=== PATIENT | female | born 1970 | race Caucasian/White ===

== ENCOUNTER 2019-01-20 20:14 | Inpatient (IN) | payer MEDICAID ==
[~2019-01-20] VITALS: Ht 160 cm; Wt 68.0 kg
[2019-01-20 20:20] VITALS: BP 116/63
--- NOTE | 2019-01-20 20:20 | NUR ---
PATIENT AMBULATED TO ER BED 11.
--- NOTE | 2019-01-20 20:42 | NUR ---
BIB REPORTING COUGH AND SINUS PRESSURE HIGUERA X 3 DAYS WITH CHEST WALL PAIN UPON COUGHING. LUNG SOUNDS DIMINISHED THROUGHOUT. NO LABORED BREATHING. MOIST COUGH.
[2019-01-20] MEDS ORDERED: KETOROLAC 30 MG/ML VIAL IM ONE (20:55)
[2019-01-20] MEDS ORDERED: predniSONE 20 MG TAB PO ONE (20:55)
[2019-01-20] MEDS ORDERED: ALBUTEROL SULFATE/IPRATROPIU 3 ML SOL IH ONE ×2 (20:55→21:20)
--- NOTE | 2019-01-20 21:02 | NUR ---
RT AT BEDSIDE.
--- NOTE | 2019-01-20 21:24 | NUR ---
XRAY AT BEDSIDE.
--- NOTE | 2019-01-20 21:37 | NUR ---
RT AT BEDSIDE. ADMINISTERING SECOND BREATHING TREATMENT
[2019-01-20] MEDS ORDERED: MAG SULF 2000 MG/WATER PREMIX 50 ML IV ONE (21:40)
[2019-01-20] MEDS ORDERED: NACL 0.9% 1,000 ML IV ONE (21:40)
[2019-01-21] MEDS ORDERED: NACL 0.9% 1,000 ML IV SCH (00:15)
[2019-01-21] MEDS ORDERED: ZOLPIDEM 5 MG TAB PO PRN (00:15)
[2019-01-21] MEDS ORDERED: LORazepam 2 MG/ML VIAL IM/IVP PRN (00:15)
[2019-01-21] MEDS ORDERED: ONDANSETRON 4 MG/2 ML VIAL IM/IVP PRN (00:15)
[2019-01-21] MEDS ORDERED: MORPHINE SULFATE 2 MG/ML SYR IVP PRN (00:15)
[2019-01-21] MEDS ORDERED: DOCUSATE SODIUM 100 MG GELCAP PO PRN (00:15)
[2019-01-21] MEDS ORDERED: ALBUTEROL SULFATE/IPRATROPIU 3 ML SOL IH PRN (00:15)
[2019-01-21 00:17] LABS: HEMATOCRIT 36.6 % (36-48); MEAN CORPUSCULAR HEMOGLOBIN 29 pg (27-31); MEAN CORPUSCULAR HGB CONC 33 g/dL (33-37); PLATELET COUNT (AUTO) 217 K/uL (140-450); RED BLOOD CELL COUNT(AUTO) 4.16 MIL/uL (4.20-5.40); WHITE BLOOD COUNT (AUTO) 8.5 K/uL (4.8-10.8)
[2019-01-21] MEDS ORDERED: predniSONE 20 MG TAB PO SCH (00:25)
[2019-01-21] MEDS ORDERED: PROMETH/CODEINE 6.25-10MG/5ML 5 ML UDC PO PRN (00:25)
--- NOTE | 2019-01-21 00:27 | NUR ---
RECEIVED FROM ER PER MARIIA AWAKE AND ALERT. NO PAIN COMPLAINTS DONE. ABLE TO VERBALIZE NEEDS WELL IN [place]OV[place]. ACCOMPANIED BY CONGOLESE SPEAKING SPOUSE. USED [employer] [facility]ING PLEATER #[id number]/RAFA . IVF SITE TO RAC#20. WITH GOOD BLOOD RETURN. CALL LIGHT WITH IN REACH AND CARE PLANS FOR THE NIGHT DISCUSSED WITH THEM. SKIN INTACT. NO EDEMA. DX. ACUTE ASTHMA. ROM X 4. ORIENTED X 4. ON 02 AT 2LPM/NC.
[2019-01-21] MEDS ORDERED: BENZOCAINE/MENTHOL 1 LOZ MM PRN (00:30)
--- NOTE | 2019-01-21 00:34 | NUR ---
PATIENT ADMITTED TO MEDSURG UNIT UNDER THE CARE OF DR. LANDAVERDE. REPORT GIVEN TO KIZZY FLORENCE. JESSICAEINT STABLE DURING WHEELCHARI TRANSFER.
[2019-01-21] MEDS: DEXT 5% / NACL 0.9% 500 ML IV SCH ×5 (00:35→22:51)
[2019-01-21 00:41] LABS: BASOPHILS % (MANUAL) 0 % (0-2); EOSINOPHILS % (MANUAL) 1 % (0-4); LYMPHOCYTES % (MANUAL) 4 % (20-46); MONOCYTES % (MANUAL) 1 % (5-12)
[2019-01-21 01:18] VITALS: BP 118/70
[2019-01-21] MEDS: ALBUTEROL SULFATE/IPRATROPIU 3 ML SOL IH SCH ×4 (01:22→20:27)
[2019-01-21 01:30] LABS: PROTHROMBIN TIME 9.2 secs (10.8-13.4)
[2019-01-21] MEDS: ACETAMINOPHEN 325 MG TAB PO PRN (01:31)
[2019-01-21] MEDS ORDERED: cefTRIAXone 1,000 MG VIAL ONE (01:35)
[2019-01-21 02:24] LABS: MAGNESIUM 2.7 mg/dL (1.8-2.4); PHOSPHORUS 2.7 mg/dL (2.5-4.9); THYROID STIMULATING HORMONE 2.2 uIU/mL (0.34-3.74)
--- NOTE | 2019-01-21 02:42 | NUR ---
PT. SLEEPING AT THIS TIME. SPOUSE LEFT FOR HOME AND PT. ORIENTED TO ROOM , RESTROOM AND CALL LIGHT USE. A/O X 4. ROM X 4. ORIENTED X 4.
[2019-01-21 03:11] LABS: CREATININE 0.9 mg/dL (0.6-1.3)
[2019-01-21 03:18] LABS: ALBUMIN 3.2 g/dL (3.4-5.0); TOTAL BILIRUBIN 0.2 mg/dL (0.0-1.0)
[2019-01-21] MEDS ORDERED: NACL 0.9% 1,000 ML IV ONE (03:40)
--- NOTE | 2019-01-21 04:37 | NUR ---
INFUSED NS 1 LITER WIDE OPEN ORDERED RT LACTIC ACID 3.6 . PT. SLEEPING BUT WAKES UP EASILY. A/O X 4. NO COMPLAINTS OF PAIN AT THIS TIME. CALL LIGHT WITH IN REACH.
--- NOTE | 2019-01-21 07:25 | NUR ---
RECEIVED BEDSIDE REPORT FROM CHANNELER INSOLE NURSE FOR CONTINUITY OF CARE. PATIENT IS AOX4, TO NAME, PLACE, DATE AND TIME. SPEAK FRISIAN. ABLE TO COMMUNICATE APPROPRIATELY AND MAKE NEEDS KNOWN. RESPIRATION EVEN AND UNLABORED. ON 2LPM VIA NC. NO SIGNS OF DISTRESS NOTED. IV ON RAC 20G, INTACT AND PATENT, INFUSING PER MD ORDER. SKIN INTACT AND CLEAN, APPROPRIATE TO ETHNICITY. ABLE TO AMBULATE WITH STEADY GAIT AND CONTINENT. DISCUSSED PLAN OF CARE WITH PATIENT AND PATIENT VERBALIZED UNDERSTANDING. BED IN LOW POSITION AND CALL LIGHT WITHIN REACH. INSTRUCTED PATIENT AND TO USE THE CALL LIGHT FOR ANY ASSISTANCE AND PATIENT WAS AWARE.
[2019-01-21 07:39] LABS: BASOPHILS % (AUTO) 0.2 % (0.0-2.0); HEMATOCRIT 34.5 % (36-48); HEMOGLOBIN 11.3 g/dL (12.0-16.0); LYMPHOCYTES # (AUTO) 0.6 K/uL (2.5-16.5); LYMPHOCYTES % (AUTO) 8.7 % (20.5-51.1); MEAN CORPUSCULAR HEMOGLOBIN 29 pg (27-31); MEAN CORPUSCULAR HGB CONC 33 g/dL (33-37); MEAN CORPUSCULAR VOLUME 88.8 fL (80-94); MONOCYTES # (AUTO) 0.1 K/uL (0.8-1.0); MONOCYTES % (AUTO) 1.3 % (1.7-9.3); NEUTROPHILS # (AUTO) 5.9 K/uL (1.8-7.7); NEUTROPHILS % (AUTO) 89.8 % (42.2-75.2); PLATELET COUNT (AUTO) 217 K/uL (140-450); RED BLOOD CELL COUNT(AUTO) 3.88 MIL/uL (4.20-5.40); RED CELL DISTRIBUTION WIDTH 14.1 % (11.6-13.7); WHITE BLOOD COUNT (AUTO) 6.6 K/uL (4.8-10.8)
[2019-01-21 07:49] LABS: ANION GAP 14.1 (8-16); CARBON DIOXIDE 25.7 mmol/L (21-32); CREATININE 0.8 mg/dL (0.6-1.3); POTASSIUM 4.8 mmol/L (3.5-5.1)
[2019-01-21 07:50] LABS: CHOL/HDL RATIO 2.4 (1-4.5)
[2019-01-21 08:00] VITALS: BP 113/64
--- NOTE | 2019-01-21 08:00 | NUR ---
RECEIVED A CRITICAL LAB FOR LACTIC ACID 2.7, NOTIFIED DR HARDIN AND DR HARDIN WAS AWARE. PROVIDED URINE SPECIMEN CUP TO PATIENT AND INSTRUCTED PATIENT TO VOID INTO THE CUP. PATIENT WAS AWARE. PATIENT WAS TALKING TO TAWNY AT BEDSIDE. NO SIGNS OF DISTRESS NOTED.
[2019-01-21] MEDS: LACTOBACILLUS RHAMNOSUS GG 1 EACH CAP PO SCH (08:28)
[2019-01-21] MEDS: MONTELUKAST SODIUM 10 MG TAB PO SCH (08:28)
[2019-01-21] MEDS: FAMOTIDINE 20 MG TAB PO SCH (08:29)
[2019-01-21] MEDS: LORATADINE 10 MG TAB PO SCH (08:29)
[2019-01-21] MEDS: HYDROcodone/APAP 5/325 MG 1 TAB TAB PO PRN (08:32)
--- NOTE | 2019-01-21 08:32 | NUR ---
PATIENT COMPLAINED OF BACK PAIN OF 5/10. MEDICATED WITH PRN PAIN MED. PATIENT TOLERATED WELL. KIMBERLEY IS AT BEDSIDE.
--- NOTE | 2019-01-21 08:41 | NUR ---
PATIENT HAS BEEN SCREENED AND CATEGORIZED MODERATE NUTRITION RISK. PATIENT WILL BE SEEN WITHIN 3-5 DAYS OF ADMISSION. 01/23/19-01/25/[address]
--- NOTE | 2019-01-21 09:30 | NUR ---
COLLECTED URINE AND DELIVERED TO LAB. PATIENT IS TALKING TO AT BEDSIDE. NO SIGNS OF DISTRESS NOTED. SAFETY MEASURES IN PLACE.
[2019-01-21] MEDS: methylPREDNISolone SS 125 MG/2 ML VIAL IVP SCH ×3 (09:32→20:45)
[2019-01-21 10:11] LABS: APPEARANCE,URINE CLEAR (CLEAR); BILIRUBIN,URINE NEGATIVE (NEGATIVE); BLOOD, URINE NEGATIVE (NEGATIVE); COLOR,URINE YELLOW (YELLOW); LEUKOCYTE ESTERASE ,URINE NEGATIVE (NEGATIVE); NITRITE, URINE NEGATIVE (NEGATIVE); PH,URINE 6.5 (5.0-9.0); UGLUCOSE TRACE (NEGATIVE)
[2019-01-21 10:21] LABS: BARBITURATE, URINE NEG. ng/ml (NEG <=200); BENZODIAZEPINE, URINE NEG. ng/mL (NEG <=200); CANNABINOID, URINE NEG. ng/mL (NEG <=50); COCAINE, URINE NEG. ng/mL (NEG <=300); OPIATE, URINE NEG. ng/mL (NEG <=2000); PHENCYCLIDINE SCREEN,URINE NEG. ng/mL (NEG <=25)
--- NOTE | 2019-01-21 11:29 | NUR ---
PATIENT IS TALKING TO ON BEDSIDE. DENIES PAIN AND SOB. NO SIGNS OF DISTRESS NOTED. INSTRUCTED PATIENT AND PORT LIONS TO USE THE CALL LIGHT FOR ANY ASSISTANCE AND BOTH ARE AWARE.
--- NOTE | 2019-01-21 13:02 | NUR ---
ADMINISTERED MED PER MD ORDER, PATIENT TOLERATED WELL. PATIENT IS TALKING TO VISITOR AND KIMBERLEY AT BEDSIDE. DENIES PAIN AND SOB. NO SIGNS OF DISTRESS NOTED. BED IN LOW POSITION AND CALL LIGHT WITHIN REACH. INSTRUCTED PATIENT AND FAMILY TO USE CALL LIGHT FOR ANY ASSISTANCE AND ALL VERBALIZED UNDERSTANDING.
--- NOTE | 2019-01-21 14:10 | NUR ---
PATIENT IS GETTING BREATHING TREATMENT AT THIS TIME. IS AT BEDSIDE. NO SIGNS OF DISTRESS NOTED. BED IN LOW POSITION AND CALL LIGHT WITHIN REACH.
--- NOTE | 2019-01-21 15:16 | NUR ---
KIMBERLEY IS AT BEDSIDE. DENIES PAIN AND SOB. NO SIGNS OF DISTRESS NOTED. BED IN LOW POSITION AND CALL LIGHT WITHIN REACH. INSTRUCTED PATIENT TO USE CALL LIGHT FOR ANY ASSISTANCE AND PATIENT WAS AWARE.
[2019-01-21 16:00] VITALS: BP 120/55
--- NOTE | 2019-01-21 19:30 | NUR ---
ENDORSED PATIENT AT BEDSIDE TO DEPARTMENT CLERK NURSE FOR CONTINUITY OF CARE. PATIENT IS IN STABLE CONDITION.
--- NOTE | 2019-01-21 19:35 | NUR ---
RECEIVED FROM AM RN IN BED SITTING UP. AWAKE AND ALERT. FAMILY MEMBERS IN HERE VISITING. CARE PLANS FOR THE NIGHT DISCUSSED WITH. CALL LIGHT WITH IN REACH. NO SOB NOTED. DENIES ANY PAIN AT THIS TIME. ABLE TO VERBALIZE NEEDS WELL.
--- NOTE | 2019-01-21 20:58 | NUR ---
DELTASONE 40 MG P.O. FOR 01/21/19 0000 NOT ADMINISTERED RT ER ADMINISTERED DELTASONE 60 MG P.O. IN ER [address] GASTON AWARE AND SAID IT IS TOO SOON. PT. AT THIS TIME AWAKE AND ALERT. SPOUSE AT BEDSIDE. GOOD AFFECT. "SHE FEELS BETTER AND SHE WANTS TO GO HOME PER SPOUSE." CALL LIGHT WITH INI REACH.
--- NOTE | 2019-01-21 21:00 | NUR ---
PT. STILL AWAKE ANT WATCHING SOMETHING INNER CELL PHONE AND SMILING. ENCOURAGED TO SLEEP AND REST. "OK" ABLE TO VERBALIZE SIMPLE NEEDS WELL IN [place]GL[place] AND A LITTLE VINCENTIAN.
[2019-01-22] MEDS: ACETAMINOPHEN 325 MG TAB PO PRN ×2 (00:05→21:38)
--- NOTE | 2019-01-22 00:11 | NUR ---
PT. WOKE UP AND REQUESTED FOR TYLENOL RT CHRONIC HEADACHE COMPLAINT. MEDICATED REQUESTED.
[2019-01-22 00:39] VITALS: BP 139/70
[2019-01-22] MEDS: DEXT 5% / NACL 0.9% 500 ML IV SCH ×3 (01:00→15:35)
[2019-01-22] MEDS: ALBUTEROL SULFATE/IPRATROPIU 3 ML SOL IH SCH ×5 (01:15→21:58)
--- NOTE | 2019-01-22 02:10 | NUR ---
SLEEPING. NO SOB NOTED. WITH BREATHING TREATMENTS . CALL LIGHT WITH IN REACH.
--- NOTE | 2019-01-22 04:31 | NUR ---
SLEEPING. NO RESTLESSNESS. CALL LIGHT WITH IN REACH.
--- NOTE | 2019-01-22 06:31 | NUR ---
AWAKE AND WENT RESTROOM BY HERSELF. STANDBY ASSIST. NO SOB. NO COMPLAINTS DONE AT THIS TIME. CALL LIGHT WITH IN REACH. ABLE TO ANSWER SIMPLE QUESTIONS WELL IN [place]. WILL ENDORSE THE NEXT RN FOR CONTINUITY OF CARE.
--- NOTE | 2019-01-22 07:20 | NUR ---
RECEIVED PT REPORT FROM PONY WORKER NURSE AT BEDSIDE. PT IS SLEEPING AT THIS TIME, NO S/S OF ANY ACUTE DISTRESS OR SOB NOTED. NO C/O PAIN. PT IS ON 2L O2 NC, SKIN IS INTACT. PT IS AMBULATORY AND NOT A FALL RISK. IV SITE IS IN THE RAC 20 G, INFUSING D5NS 90 ML/HR. CALL LIGHT IS WITHIN REACH. WILL CONTINUE TO MONITOR.
[2019-01-22 07:50] LABS: ANION GAP 11.4 (8-16); CARBON DIOXIDE 24.9 mmol/L (21-32); CREATININE 0.7 mg/dL (0.6-1.3); POTASSIUM 4.3 mmol/L (3.5-5.1)
[2019-01-22 07:56] LABS: HEMOGLOBIN 10.8 g/dL (12.0-16.0); LYMPHOCYTES # (AUTO) 1.3 K/uL (2.5-16.5); MEAN CORPUSCULAR HEMOGLOBIN 29 pg (27-31); MEAN CORPUSCULAR HGB CONC 33 g/dL (33-37); MEAN CORPUSCULAR VOLUME 88.5 fL (80-94); MONOCYTES # (AUTO) 0.4 K/uL (0.8-1.0); MONOCYTES % (AUTO) 3.1 % (1.7-9.3); NEUTROPHILS # (AUTO) 11.1 K/uL (1.8-7.7); NEUTROPHILS % (AUTO) 86.9 % (42.2-75.2); PLATELET COUNT (AUTO) 245 K/uL (140-450); RED BLOOD CELL COUNT(AUTO) 3.73 MIL/uL (4.20-5.40); RED CELL DISTRIBUTION WIDTH 14.3 % (11.6-13.7); WHITE BLOOD COUNT (AUTO) 12.8 K/uL (4.8-10.8)
[2019-01-22 08:00] VITALS: BP 138/67
[2019-01-22 08:13] LABS: MAGNESIUM 1.9 mg/dL (1.8-2.4)
[2019-01-22] MEDS: LORATADINE 10 MG TAB PO SCH (08:21)
[2019-01-22] MEDS: LACTOBACILLUS RHAMNOSUS GG 1 EACH CAP PO SCH (08:21)
[2019-01-22] MEDS: MONTELUKAST SODIUM 10 MG TAB PO SCH (08:21)
[2019-01-22] MEDS: FAMOTIDINE 20 MG TAB PO SCH (08:22)
[2019-01-22] MEDS: AZITHROMYCIN 250 MG TAB PO SCH (08:35)
[2019-01-22] MEDS: HYDROcodone/APAP 5/325 MG 1 TAB TAB PO PRN (08:35)
--- NOTE | 2019-01-22 08:55 | NUR ---
AM MEDS ADMINISTERED. PT TOLERATED WELL. FIRST DOSE IV ZOSYN IS INFUSING. PT'S IS VISITING AT BEDSIDE. PT ATE 100% OF BREAKFAST. Addendum: 01/22/19 at 0919 by Alba Ledezma RN CHARTED ON WRONG PT REGARDING IV SOZYN. NO IV ZOSYN FOR THIS PT.
[2019-01-22] MEDS ORDERED: methylPREDNISolone SS 40 MG/ML VIAL IVP SCH ×2 (09:00→09:35)
--- NOTE | 2019-01-22 10:39 | NUR ---
PT GIVEN A HAT FOR STOOL SAMPLE AND INSTRUCTED TO NOTIFY RN WHEN SHE HAS HAD A BM, PER MD ORDER FOR HEMOCCULT.
[2019-01-22] MEDS: methylPREDNISolone SS 40 MG/ML VIAL IVP SCH ×2 (12:28→21:31)
--- NOTE | 2019-01-22 14:55 | NUR ---
SAMPLE CUP GIVEN TO PT AND SHE IS AWARE THAT SHE NEEDS TO PROVIDE A SPUTUM SAMPLE FOR MICRO ANALYSIS.
--- NOTE | 2019-01-22 15:05 | NUR ---
PT AMBULATING IN THE HALLWAY WITH HER . STEADY GATE, NO S/S OF ANY ACUTE DISTRESS, NO SOB. WILL CONTINUE TO MONITOR. PT'S BED LINENS WERE CHANGED.
[2019-01-22 16:00] VITALS: BP 124/61
--- NOTE | 2019-01-22 19:25 | NUR ---
PT ENDORSED TO CHROMOSOMAL DISORDERS COUNSELOR NURSE IN STABLE CONDITION.
--- NOTE | 2019-01-22 19:26 | NUR ---
RECEIVED REPORT FROM AM SHIFT NURSE AT BEDSIDE. AWAKE, A O X 4. W/ AT BEDSIDE, SPEAKS [facility] ONLY, PLASTICS AND COMPOSITES INSPECTOR. PT IS ON 2L O2 NC, SKIN IS INTACT. PT IS AMBULATORY AND NOT A FALL RISK. IV SITE IS IN THE RAC 20 G, INFUSING D5NS 90 ML/HR. CALL LIGHT IS WITHIN REACH. WILL CONTINUE TO MONITOR.
[2019-01-22 20:00] VITALS: BP 132/69
--- NOTE | 2019-01-22 21:28 | NUR ---
PT EMOTIONAL, UNDERGOING FAMILY CRISIS, MOM DYING , RR- 21 , INFORMED RT TO CHECK ON PT FOR RESPIRATORY RATE AND THE NEED FOR BREATHNG TX PRN. 02 AT 2 LPM NC STILL IN PLACE. INFORMED PT TO DO DEEP BREATHING AND TO AVOID HYPERVENTILATION. PT ACKNOWLEDGED. PT STILL EMOTIONAL AT THIS TIME.
--- NOTE | 2019-01-22 21:40 | NUR ---
PT REQUESTED A BREATHING TX; WHEEZING NOTED RR- 21
[2019-01-23] MEDS: DEXT 5% / NACL 0.9% 500 ML IV SCH ×4 (00:34→17:41)
--- NOTE | 2019-01-23 01:13 | NUR ---
PT REQUESTED SLEEPING PILL FOR MAREK, HER MOM AND SHE HAS DIFFICULTY SLEEPING
[2019-01-23 04:00] VITALS: BP 112/60
[2019-01-23] MEDS: ALBUTEROL SULFATE/IPRATROPIU 3 ML SOL IH SCH ×3 (07:11→19:56)
[2019-01-23 07:14] LABS: BASOPHILS % (AUTO) 0.1 % (0.0-2.0); HEMATOCRIT 31.6 % (36-48); HEMOGLOBIN 10.3 g/dL (12.0-16.0); LYMPHOCYTES # (AUTO) 1.6 K/uL (2.5-16.5); LYMPHOCYTES % (AUTO) 11.2 % (20.5-51.1); MEAN CORPUSCULAR HEMOGLOBIN 29 pg (27-31); MEAN CORPUSCULAR HGB CONC 33 g/dL (33-37); MEAN CORPUSCULAR VOLUME 88.1 fL (80-94); MONOCYTES # (AUTO) 0.4 K/uL (0.8-1.0); NEUTROPHILS # (AUTO) 11.9 K/uL (1.8-7.7); NEUTROPHILS % (AUTO) 85.7 % (42.2-75.2); PLATELET COUNT (AUTO) 259 K/uL (140-450); RED BLOOD CELL COUNT(AUTO) 3.59 MIL/uL (4.20-5.40); RED CELL DISTRIBUTION WIDTH 13.9 % (11.6-13.7); WHITE BLOOD COUNT (AUTO) 13.8 K/uL (4.8-10.8)
--- NOTE | 2019-01-23 07:14 | NUR ---
AT BEDSIDE USED CUSHION SPRING ASSEMBLER OATIENT C/O NASAL DRYNESS POST HHN THERAPY AND RESPIRATORY DRUG ADDED HUMIDIFIER
--- NOTE | 2019-01-23 07:15 | NUR ---
PT REPORT RECEIVED FROM RAILROAD CAR CLEANING SUPERVISOR NURSE. PT IS AWAKE AND ALERT, ON HER PHONE. PT IS ON 2L O2 NC, SKIN INTACT. NO S/S OF ACUTE DISTRESS OR SOB. IV SITE ON THE RAC 20 G INFUSING D5NS 90 ML/HR. CALL LIGHT IS WITHIN REACH. WILL CONTINUE TO MONITOR.
[2019-01-23 07:45] LABS: ANION GAP 14.1 (8-16); CARBON DIOXIDE 23.8 mmol/L (21-32); CREATININE 0.7 mg/dL (0.6-1.3); POTASSIUM 3.9 mmol/L (3.5-5.1)
[2019-01-23 07:49] LABS: MAGNESIUM 1.9 mg/dL (1.8-2.4); PHOSPHORUS 3.5 mg/dL (2.5-4.9)
[2019-01-23 08:00] VITALS: BP 124/63
--- NOTE | 2019-01-23 08:12 | NUR ---
DR MURILLO NOTIFIED OF PT'S LACTIC ACID 2.6 (UP FORM 2.2 YESTERDAY)
--- NOTE | 2019-01-23 09:02 | NUR ---
PT GETTING REPEAT CXR AT THIS TIME.
[2019-01-23] MEDS: MONTELUKAST SODIUM 10 MG TAB PO SCH (09:16)
[2019-01-23] MEDS: LORATADINE 10 MG TAB PO SCH (09:16)
[2019-01-23] MEDS: FAMOTIDINE 20 MG TAB PO SCH (09:16)
[2019-01-23] MEDS: LACTOBACILLUS RHAMNOSUS GG 1 EACH CAP PO SCH (09:16)
[2019-01-23] MEDS: AZITHROMYCIN 250 MG TAB PO SCH (09:16)
[2019-01-23] MEDS: ASCORBIC ACID 500 MG TAB PO SCH (09:17)
[2019-01-23] MEDS: FERROUS SULFATE 325 MG TABEC PO SCH (09:17)
--- NOTE | 2019-01-23 09:20 | NUR ---
AM MEDS ADMINISTERED, PT TOLERATED WELL. RELATIVES VISITING AT BEDSIDE AT THIS TIME.
[2019-01-23] MEDS ORDERED: FUROSEMIDE 20 MG/2 ML VIAL IVP SCH (10:30)
[2019-01-23] MEDS ORDERED: predniSONE 20 MG TAB PO SCH (10:30)
--- NOTE | 2019-01-23 12:01 | NUR ---
PT IS AWARE THAT SHE NEEDS TO AMBULATE PER MD ORDER. SHE IS ALSO AWARE THAT WE STILL NEED A SAMPLE OF BM FOR HEMOCCULT STUDY. PT GIVEN A TOILET HAT FOR THE BM SAMPLE.
--- NOTE | 2019-01-23 13:43 | NUR ---
PT GETTING A BREATHING TX AT THIS TIME. PT'S IS AT BEDSIDE.
[2019-01-23] MEDS: PIPER/TAZO 3.375GM/D5W PREMIX 50 ML IV SCH ×2 (13:49→20:42)
[2019-01-23 16:00] VITALS: BP 124/59
--- NOTE | 2019-01-23 19:10 | NUR ---
PT ENDORSED TO PUBLIC INFORMATION COORDINATOR NURSE IN STABLE CONDITION.
--- NOTE | 2019-01-23 19:11 | NUR ---
RECEIVED REPORT FROM FROM AM SHIFT NURSE. PT IS AWAKE AND ALERT, ON HER PHONE. PT IS ON 2L O2 NC, SKIN INTACT. NO S/S OF ACUTE DISTRESS OR SOB. IV SITE ON THE RAC 20 G INFUSING D5NS 50 ML/HR. PT'S LEG MINIMAL SWELLING, NON PITTING, WITH MILD PAIN TOLERABLE UPON PALPATION, FOR USD DVT. CALL LIGHT IS WITHIN REACH. WILL CONTINUE TO MONITOR.
[2019-01-23 20:00] VITALS: BP 149/73
--- NOTE | 2019-01-23 22:02 | NUR ---
PT IN BED, SITTING, TOLERATING WELL, RECEIVED BREATHING TX EARLIER, NO SOB NO RESPIRATORY DISTRESS.
[2019-01-23 22:35] VITALS: BP 107/57
[2019-01-24] MEDS: ALBUTEROL SULFATE/IPRATROPIU 3 ML SOL IH SCH ×3 (01:04→12:55)
[2019-01-24] MEDS: DEXT 5% / NACL 0.9% 500 ML IV SCH ×2 (02:50→10:55)
[2019-01-24 04:00] VITALS: BP 123/73
[2019-01-24] MEDS: PIPER/TAZO 3.375GM/D5W PREMIX 50 ML IV SCH (05:43)
[2019-01-24 06:14] LABS: FOLIC ACID 5.9 ng/mL (>3.0)
[2019-01-24 06:48] LABS: BASOPHILS % (AUTO) 0.1 % (0.0-2.0); EOSINOPHILS % (AUTO) 0.2 % (0.0-4.0); HEMATOCRIT 31.2 % (36-48); HEMOGLOBIN 10.2 g/dL (12.0-16.0); LYMPHOCYTES # (AUTO) 4.1 K/uL (2.5-16.5); LYMPHOCYTES % (AUTO) 31.1 % (20.5-51.1); MEAN CORPUSCULAR HEMOGLOBIN 29 pg (27-31); MEAN CORPUSCULAR HGB CONC 33 g/dL (33-37); MEAN CORPUSCULAR VOLUME 87.9 fL (80-94); MONOCYTES # (AUTO) 0.9 K/uL (0.8-1.0); MONOCYTES % (AUTO) 6.4 % (1.7-9.3); NEUTROPHILS # (AUTO) 8.2 K/uL (1.8-7.7); NEUTROPHILS % (AUTO) 62.2 % (42.2-75.2); PLATELET COUNT (AUTO) 250 K/uL (140-450); RED BLOOD CELL COUNT(AUTO) 3.55 MIL/uL (4.20-5.40); RED CELL DISTRIBUTION WIDTH 13.9 % (11.6-13.7); WHITE BLOOD COUNT (AUTO) 13.2 K/uL (4.8-10.8)
--- NOTE | 2019-01-24 06:48 | NUR ---
TALKED TO MARY RIOS, NO ORDER FOR HEMOOCULT BLOOD STOOL, PUT IN THE ORDER. COLLECTED STOOL AND SENT TO LAB AT 0500 AM
--- NOTE | 2019-01-24 06:51 | NUR ---
DUPLICATE STOOL ORDER FOR 0642, CANCELLED IT REASON: DUPLICATE
--- NOTE | 2019-01-24 06:52 | NUR ---
PT AWAKE ALERT, IN BED SUPINE. PATIENT NOT IN RESPIRATORY DISTRESS, STILL W/ O2 AT 2 LPM VIA NC W/ 96% SAT. STABLE CONDITION AT THIS TIME. WILL ENDORSE TO NEXT SHIFT FOR CONTINUITY OF CARE.
--- NOTE | 2019-01-24 06:52 | NUR ---
PATIENT IN BED COMFORTABLE, NO SOB. WILL CONTINUE TO MONITOR.
--- NOTE | 2019-01-24 07:15 | NUR ---
RECEIVED REPORT FROM RIGGING SLINGER NURSE ASAF FOR CONTINUITY OF CARE. RESPIRATIONS EVEN AND UNLABORED. IV INTACT AND PATENT. SAFETY MEASURES IN PLACE. CALL LIGHT AT BEDSIDE. BED IN LOW POSITION. WILL CONTINUE TO MONITOR.
[2019-01-24 07:40] LABS: PHOSPHORUS 4.4 mg/dL (2.5-4.9)
[2019-01-24 07:44] LABS: ANION GAP 8.3 (8-16); CARBON DIOXIDE 28.1 mmol/L (21-32); CREATININE 0.8 mg/dL (0.6-1.3); POTASSIUM 3.4 mmol/L (3.5-5.1)
[2019-01-24 08:00] VITALS: BP 124/68
[2019-01-24] MEDS: LACTOBACILLUS RHAMNOSUS GG 1 EACH CAP PO SCH (08:55)
[2019-01-24] MEDS: LORATADINE 10 MG TAB PO SCH (08:55)
[2019-01-24] MEDS: FAMOTIDINE 20 MG TAB PO SCH (08:55)
[2019-01-24] MEDS: FERROUS SULFATE 325 MG TABEC PO SCH (08:55)
[2019-01-24] MEDS: MONTELUKAST SODIUM 10 MG TAB PO SCH (08:55)
[2019-01-24] MEDS: ASCORBIC ACID 500 MG TAB PO SCH (08:55)
[2019-01-24] MEDS ORDERED: predniSONE 20 MG TAB PO SCH (09:00)
--- NOTE | 2019-01-24 09:15 | NUR ---
GAVE ORDERED DUE MEDICATIONS, PT TOLERATED WELL. FAMILY AT BEDSIDE. CALL LIGHT AT BEDSIDE. BED IN LOW POSITION. WILL CONTINUE TO MONITOR.
--- NOTE | 2019-01-24 11:30 | NUR ---
PT LYING IN BED IN STABLE CONDITION WITH FAMILY AT BEDSIDE. RESPIRATIONS EVEN AND UNLABORED. BED IN LOW POSITION. CALL LIGHT AT BEDSIDE. WILL CONTINUE TO MONITOR.
[2019-01-24] MEDS ORDERED: PRED20TA5 PO (12:24)
[2019-01-24] MEDS ORDERED: AZIT250T3 PO (12:24)
[2019-01-24] MEDS ORDERED: BUDE90PO IH (12:24)
--- NOTE | 2019-01-24 13:30 | NUR ---
PT GETTING DRESSED WITH HELP OF SPOUSE TO BE DISCHARGED. PT TOLERATING WELL.
--- NOTE | 2019-01-24 14:00 | NUR ---
GAVE DISCHARGE INSTRUCTIONS PT VERBALIZED UNDERSTANDING OF INSTRUCTIONS. IV REMOVED, LUMEN INTACT. ID BAND REMOVED. WHEELED TO LOBBY IN STABLE CONDITION WHERE FAMILY WAS WAITING WITH VEHICLE.
== END 2019-01-24 14:00 | disposition home or self-care (01) | DRG 720 ==
LOC: MED 20:14 → MTU 23:47
PROVIDERS: ADMIT General Practice; ATTEND General Practice
DX: A41.9 Sepsis, unspecified organism (principal); J96.01 Acute respiratory failure with hypoxia; E66.3 Overweight; J45.41 Moderate persistent asthma with (acute) exacerbation; J98.11 Atelectasis; D64.9 Anemia, unspecified; Z68.26 Body mass index [BMI] 26.0-26.9, adult; Z71.3 Dietary counseling and surveillance; Z83.3 Family history of diabetes mellitus; Z82.49 Family history of ischemic heart disease and other diseases of the circulatory system; Z90.49 Acquired absence of other specified parts of digestive tract; J18.9 Pneumonia, unspecified organism
CPT/HCPCS: 36415; 71045; 80048; 80053; 80305; 81003; 82272; 82607; 82728; 82746; 83036; 83540; 83605; 83690; 83735; 83880; 84100; 84134; 84443; 85025; 85045; 85610; 85730; 87040; 87070; 87081; 87186; 87205; 87804; 93970; 94640; 96365; 96372; 97161-GP; 99285; J0696; J1885; J1940; J2543; J2920; J2930; J3475; J7030; J7042; J7060; J7512; J7620; Q0092

== ENCOUNTER 2019-03-21 19:43 | Emergency (ER) | payer MEDICAID ==
[~2019-03-21] VITALS: Ht 152.4 cm; Wt 72.6 kg
[~2019-03-21 19:43] MED LIST: AZIT250T3 PO; BUDE90PO IH; PRED20TA5 PO
[2019-03-21 19:45] VITALS: BP 133/71
--- NOTE | 2019-03-21 19:45 | NUR ---
TO BED # 07 AMBULATORY
[2019-03-21 20:00] VITALS: BP 133/71
[2019-03-21] MEDS ORDERED: KETOROLAC 60 MG/2 ML VIAL IM ONE (20:00)
--- NOTE | 2019-03-21 20:00 | NUR ---
48 Y/O F PRESENTED TO ED WITH GENERALIZED BODY PAIN X1 DAY. PER PT "YESTERDAY I WAS DRIVING AND FELT LIKE I HAD TO SNEEZE BUT I HELD IT IN. EVER SINCE I'VE BEEN FEELING BODY ACHES." PAIN LOCATED MOSTLY FROM ABDOMEN UP, 8/10 PAIN, TIGHTNESS AND SWELLING. +NUMBNESS/ TINGLING IN HANDS. +CMS. ERMD NOTIFIED. WILL CONTINUE TO MONITOR.
[2019-03-21 20:30] LABS: BASOPHILS # (AUTO) 0.1 K/uL (0.00-0.22); EOSINOPHILS # (AUTO) 0.3 K/uL (0-0.4); EOSINOPHILS % (AUTO) 3.6 % (0.0-4.0); HEMATOCRIT 37.2 % (36-48); HEMOGLOBIN 12.5 g/dL (12.0-16.0); LYMPHOCYTES # (AUTO) 2.7 K/uL (2.5-16.5); LYMPHOCYTES % (AUTO) 29.8 % (20.5-51.1); MEAN CORPUSCULAR HEMOGLOBIN 29 pg (27-31); MEAN CORPUSCULAR HGB CONC 34 g/dL (33-37); MEAN CORPUSCULAR VOLUME 84.9 fL (80-94); MONOCYTES # (AUTO) 0.8 K/uL (0.8-1.0); MONOCYTES % (AUTO) 8.7 % (1.7-9.3); NEUTROPHILS # (AUTO) 5.2 K/uL (1.8-7.7); NEUTROPHILS % (AUTO) 56.9 % (42.2-75.2); PLATELET COUNT (AUTO) 168 K/uL (140-450); RED BLOOD CELL COUNT(AUTO) 4.38 MIL/uL (4.20-5.40); RED CELL DISTRIBUTION WIDTH 13.2 % (11.6-13.7); WHITE BLOOD COUNT (AUTO) 9.2 K/uL (4.8-10.8)
[2019-03-21 20:30] LABS: APPEARANCE,URINE CLEAR (CLEAR); BILIRUBIN,URINE NEGATIVE (NEGATIVE); BLOOD, URINE 2+ (NEGATIVE); COLOR,URINE YELLOW (YELLOW); LEUKOCYTE ESTERASE ,URINE NEGATIVE (NEGATIVE); NITRITE, URINE NEGATIVE (NEGATIVE); UGLUCOSE NEGATIVE (NEGATIVE)
[2019-03-21 20:41] LABS: ANION GAP 11.8 (8-16); CARBON DIOXIDE 25.9 mmol/L (21-32); CREATININE 0.7 mg/dL (0.6-1.3); POTASSIUM 3.7 mmol/L (3.5-5.1)
[2019-03-21 20:45] LABS: RBC,URINE 0-5 /HPF (0-5); WBC,URINE 0-5 /HPF (0-5)
[2019-03-21 20:46] LABS: ALBUMIN 3.2 g/dL (3.4-5.0); TOTAL BILIRUBIN 0.2 mg/dL (0.0-1.0)
--- NOTE | 2019-03-21 21:36 | NUR ---
Patient discharged with v/s stable. Written and verbal after care instructions given and explained. Patient alert, oriented and verbalized understanding of instructions. Ambulatory with steady gait. All questions addressed prior to discharge. ID band removed. Patient advised to follow up with PMD. Rx of Ibuprofen and Flexiril given. Patient educated on indication of medication including possible reaction and side effects. Opportunity to ask questions provided and answered.
== END 2019-03-21 21:36 | disposition home or self-care (01) ==
LOC: MED 19:43
DX: M79.10 Myalgia, unspecified site (principal); R20.2 Paresthesia of skin; R03.0 Elevated blood-pressure reading, without diagnosis of hypertension; J45.909 Unspecified asthma, uncomplicated; Z90.49 Acquired absence of other specified parts of digestive tract; Z79.899 Other long term (current) drug therapy
CPT/HCPCS: 36415; 71045; 80053; 81001; 83690; 85025; 87804; 93005; 96372; 99284; J1885; Q0092

== ENCOUNTER 2022-03-04 14:27 | Emergency (ER) | payer MEDICAID, OTHER ==
[~2022-03-04] VITALS: Ht 149.1 cm; Wt 74.5 kg
[2022-03-04 14:47] VITALS: BP 129/74
--- NOTE | 2022-03-04 14:52 | NUR ---
PT AMB TO BED 9.
--- NOTE | 2022-03-04 14:55 | NUR ---
51 Y/O FEMALE BIB SELF C/O COUGH, HIGUERA, SORE THROAT X 2WEEKS AND C/O SOB, MID CHEST PAIN X 4 DAYS. PT DENIES N,V,D. PT DENIES FEVER OR CHILLS. LUNG SOUNDS CTA. PT ALERT AND ORIENTED X4. PT PLACED ON MONITOR. BED LOCKED IN LOWEST POSITION. BED RAIL X1. PMH: ASTHMA
[2022-03-04] MEDS ORDERED: predniSONE 20 MG TAB PO ONE (15:05)
[2022-03-04] MEDS ORDERED: ALBUTEROL SULFATE/IPRATROPIU 3 ML SOL IH ONE (15:05)
[2022-03-04] MEDS ORDERED: KETOROLAC 60 MG/2 ML VIAL IM ONE (15:05)
[2022-03-04] MEDS ORDERED: ALBUTEROL 0.083% 2.5 MG/3 ML NEBU INH ONE (15:05)
[2022-03-04] MEDS ORDERED: PRED20TA5 PO (16:06)
[2022-03-04] MEDS ORDERED: IBUP-2213 PO (16:06)
[2022-03-04] MEDS ORDERED: ALBU0.0912 INH (16:07)
[2022-03-04 16:17] VITALS: BP 124/58
--- NOTE | 2022-03-04 16:56 | NUR ---
Patient discharged with v/s stable. Written and verbal after care instructions given and explained. Patient alert, oriented and verbalized understanding of instructions. Ambulatory with steady gait. All questions addressed prior to discharge. ID band removed. Patient advised to follow up with PMD. Rx of PROVENTIL, IBUPROFEN DELTASONE given. Patient educated on indication of medication including possible reaction and side effects. Opportunity to ask questions provided and answered.
== END 2022-03-04 16:56 | disposition home or self-care (01) ==
LOC: MED 14:27
DX: J45.901 Unspecified asthma with (acute) exacerbation (principal); R51.9 Headache, unspecified; Z90.49 Acquired absence of other specified parts of digestive tract; Z79.2 Long term (current) use of antibiotics; Z79.899 Other long term (current) drug therapy
CPT/HCPCS: 94640; 96372; 99283; J1885; J7512; J7613; 99284

== ENCOUNTER 2022-05-10 12:22 | Emergency (ER) | payer OTHER ==
[~2022-05-10] VITALS: Ht 152.4 cm; Wt 72.6 kg
[~2022-05-10 12:22] MED LIST changes: +ALBU0.0912 INH; +IBUP-2213 PO
[2022-05-10 12:42] VITALS: BP 141/65
--- NOTE | 2022-05-10 12:46 | NUR ---
TENT 1.
--- NOTE | 2022-05-10 12:46 | NUR ---
COVID LAURA SWAB DONE.
--- NOTE | 2022-05-10 13:02 | NUR ---
FLU SWAB DONE.
[2022-05-10] MEDS ORDERED: NAPR-1704 PO (14:05)
[2022-05-10] MEDS ORDERED: BENZ100C6 PO (14:05)
[2022-05-10] MEDS ORDERED: KETOROLAC 30 MG/ML VIAL IM ONE (14:15)
--- NOTE | 2022-05-10 14:19 | NUR ---
51 y/o female bib self from home, c/o body aches, cough, headache for 4 days. pt tested negative 2 days ago for covid. pt denies anyone else sick at home with same s/s. pmh: asthma nka med: denies
--- NOTE | 2022-05-10 14:26 | NUR ---
Patient discharged with v/s stable. Written and verbal after care instructions given and explained. Patient verbalized understanding. Ambulatory with steady gait. All questions addressed prior to discharge. Advised to follow up with PMD.
== END 2022-05-10 14:26 | disposition home or self-care (01) ==
LOC: MED 12:22
DX: B34.9 Viral infection, unspecified (principal); Z20.822 Contact with and (suspected) exposure to COVID-19; J45.909 Unspecified asthma, uncomplicated; Z79.899 Other long term (current) drug therapy
CPT/HCPCS: 71045; 87426; 87804; 96372; 99284; J1885; Q0092

== ENCOUNTER 2022-11-23 09:25 | Emergency (ER) | payer OTHER ==
[~2022-11-23] VITALS: Ht 151.1 cm; Wt 75.7 kg
[~2022-11-23 09:25] MED LIST changes: +BENZ100C6 PO; +NAPR-1704 PO
[2022-11-23 09:35] VITALS: BP 145/69
[2022-11-23] MEDS ORDERED: predniSONE 20 MG TAB PO ONE (09:45)
[2022-11-23] MEDS ORDERED: ALBUTEROL HFA MDI 90 MCG/ACTUATION 8 GM INH ONE (09:45)
--- NOTE | 2022-11-23 09:50 | NUR ---
ASSUMED PATIENT CARE, NURSING ASSESSMENT COMPLETED. DR BAE AT BEDSIDE, MSE COMPLETED.
--- NOTE | 2022-11-23 10:02 | NUR ---
SWABS COLLECTED AND WALKED TO LAB.
[2022-11-23] MEDS ORDERED: NAPR-1704 PO (10:27)
[2022-11-23] MEDS ORDERED: PROM118S5 PO (10:27)
[2022-11-23] MEDS ORDERED: ONDA-188 PO (10:27)
[2022-11-23] MEDS ORDERED: PRED20TA5 PO (10:27)
[2022-11-23] MEDS ORDERED: LORA1T1237 PO (10:27)
[2022-11-23 10:32] VITALS: BP 134/66
--- NOTE | 2022-11-23 10:33 | NUR ---
Patient discharged with v/s stable. Written and verbal after care instructions given and explained. Patient alert, oriented and verbalized understanding of instructions. Ambulatory with steady gait. All questions addressed prior to discharge. ID band removed. Patient advised to follow up with PMD. Rx of CLARITIN, NAPROSYN, ONDANSETRON, PREDNISONE, PROMETHAZINE given. Patient educated on indication of medication including possible reaction and side effects. Opportunity to ask questions provided and answered.
== END 2022-11-23 10:32 | disposition home or self-care (01) ==
LOC: MED 09:25
DX: J45.901 Unspecified asthma with (acute) exacerbation (principal); Z20.822 Contact with and (suspected) exposure to COVID-19; B34.9 Viral infection, unspecified; Z79.899 Other long term (current) drug therapy; Z90.49 Acquired absence of other specified parts of digestive tract
CPT/HCPCS: 87426; 87804; 99283; J7512

== ENCOUNTER 2023-12-26 07:14 | Emergency (ER) | payer SELFPAY ==
[~2023-12-26] VITALS: Ht 160 cm; Wt 68.0 kg
[~2023-12-26 07:14] MED LIST changes: +LORA1T1237 PO; +ONDA-188 PO; +PROM118S5 PO
[2023-12-26 07:24] VITALS: BP 150/70; PULSE 68; RESP 24; TEMP 97.6; O2SAT 99
[2023-12-26 07:33] VITALS: O2SAT 99
[2023-12-26] MEDS: CYCLOBENZAPRINE 10 MG TAB PO ONE (07:50)
[2023-12-26] MEDS: KETOROLAC 30 MG/ML VIAL IM ONE (07:53)
[2023-12-26 07:57] LABS: BASOPHILS # (AUTO) 0.1 K/uL (0.00-0.22); BASOPHILS % (AUTO) 0.7 % (0.0-2.0); EOSINOPHILS # (AUTO) 0.3 K/uL (0-0.4); HEMATOCRIT 40.5 % (36-48); HEMOGLOBIN 13.7 g/dL (12.0-16.0); LYMPHOCYTES # (AUTO) 2.8 K/uL (2.5-16.5); LYMPHOCYTES % (AUTO) 32.2 % (20.5-51.1); MEAN CORPUSCULAR HEMOGLOBIN 29 pg (27-31); MEAN CORPUSCULAR HGB CONC 34 g/dL (33-37); MEAN CORPUSCULAR VOLUME 85.8 fL (80-94); MONOCYTES # (AUTO) 0.5 K/uL (0.8-1.0); MONOCYTES % (AUTO) 6.3 % (1.7-9.3); NEUTROPHILS # (AUTO) 4.9 K/uL (1.8-7.7); NEUTROPHILS % (AUTO) 56.8 % (42.2-75.2); PLATELET COUNT (AUTO) 201 K/uL (140-450); RED BLOOD CELL COUNT(AUTO) 4.72 MIL/uL (4.20-5.40); RED CELL DISTRIBUTION WIDTH 14.1 % (11.6-13.7); WHITE BLOOD COUNT (AUTO) 8.6 K/uL (4.8-10.8)
[2023-12-26 08:35] LABS: ANION GAP 14.4 (8-16); CHLORIDE 105 mmol/L (98-107); CREATININE 0.8 mg/dL (0.6-1.3); GFR ARICAN-AMERICAN 96 mL/min (>90); GFR NON ARICAN-AMERICAN 79 mL/min (>90); GLUCOSE 201 mg/dL (74-106); POTASSIUM 4.4 mmol/L (3.5-5.1); SODIUM SERUM 141 mmol/L (136-145); UREA NITROGEN, BLOOD 19 mg/dL (7-18)
[2023-12-26 08:42] LABS: ALANINE AMINOTRANSFERASE 68 U/L (12-78); ALBUMIN 3.6 g/dL (3.4-5.0); ALKALINE PHOSPHATASE 79 U/L (50-136); ASPARTATE AMINOTRANSFERASE 21 U/L (15-37); TOTAL BILIRUBIN 0.2 mg/dL (0.0-1.0); TOTAL PROTEIN, SERUM 7.3 g/dL (6.4-8.2)
[2023-12-26 08:48] LABS: LIPASE 47 U/L (16-77)
[2023-12-26 10:22] VITALS: O2SAT 100
[2023-12-26 12:36] VITALS: O2SAT 100
[2023-12-26 12:37] VITALS: BP 118/60; PULSE 73; RESP 12; TEMP 98.1; O2SAT 99
[2023-12-26] MEDS ORDERED: CYCL10TA33 PO (14:16)
== END 2023-12-26 14:16 | disposition home or self-care (01) ==
LOC: MED 07:14
DX: R07.9 Chest pain, unspecified (principal); J45.909 Unspecified asthma, uncomplicated; Z79.899 Other long term (current) drug therapy
CPT/HCPCS: 36415; 71045; 80053; 83690; 84484; 85025; 93005; 96372; 99285; J1885